=== PATIENT | male | born 1965 | race Caucasian/White ===

== ENCOUNTER 2018-10-27 13:10 | Outpatient (CLI) | payer BC ==
--- NOTE | 2018-10-27 16:22 | MRI ---
MRI RIGHT SHOULDER WITHOUT CONTRAST: INDICATIONS: History of impingement syndrome. FINDINGS: There is a full-thickness tear involving the supraspinatus at the footprint, measuring 0.8 x 1.8 cm i n its greatest mediolateral AP dimensions, respectively. There is some tear extension into the conjo ined tendon. There is moderate tendinosis of the infraspinatus. There is mild fluid in the subacrom ial subdeltoid bursa. There is moderate AC joint osteoarthrosis. There is a type II acromion. No o s acromiale is evident. The biceps tendon is located within the bicipital groove. The intraarticula r course of the biceps tendon appears within normal limits, but there is suggestion of some mild to m oderate tendinosis of the intraarticular biceps tendon. The biceps anchor and biceps anchor complex are intact. The inferior glenohumeral labral ligamentous complex is intact. The glenohumeral articu lar surface is normal appearing. IMPRESSION: 1. Full-thickness supraspinatus tear. 2. Moderate acromioclavicular joint osteoarthrosis. 3. Mild tendinosis of the infraspinatus. No muscular atrophy is evident. 4. Moderate intraarticular biceps tendinosis. POS: [facility]
== END 2018-10-27 13:11 | disposition home or self-care (01) ==
LOC: TBSIIMAG 13:10
PROVIDERS: ATTEND Orthopaedic Surgery
DX: M75.41 Impingement syndrome of right shoulder (principal); M75.101 Unspecified rotator cuff tear or rupture of right shoulder, not specified as traumatic; M19.011 Primary osteoarthritis, right shoulder; M75.81 Other shoulder lesions, right shoulder

== ENCOUNTER 2019-03-26 15:56 | Outpatient (CLI) | payer BC ==
--- NOTE | 2019-03-26 16:49 | RAD ---
Exam: Chest 2 views HISTORY:Preoperative evaluation Comparison: None FINDINGS: Lungs: No masses or consolidation. Cardiac silhouette: Normal size. Sternotomy wires are present. Pulmonary vessels: Normal Pleural Spaces: Clear Pneumothorax: None Osseous abnormalities: None of acuity. IMPRESSION: No focal consolidation.
[2019-03-26 17:03] LABS: #Eosinphils 0.1 thou/uL (0.0-0.7); #Lymphocytes 2.5 thou/uL (1.20-3.40); #Monocytes 0.7 thou/uL (0.11-0.59); %Basophils 0.4 % (0.0-1.0); %Eosinophils 1.1 % (0.0-10.0); %Lymphocytes 40.1 % (21.0-51.0); %Neutrophils 47.4 % (42.0-75.0); Hemoglobin 14.4 g/dL (14.0-18.0); Mean Corpuscular HGB CONC 35.2 g/dL (32.0-36.0); Mean Corpuscular Hemoglobin 32.4 pg (27.0-31.0); Mean Platelet Volume 8.4 fL (7.4-10.4); Platelet Count 243 thou/uL (130-400); RBC Distribution Width 11.9 % (11.5-14.5); Red Blood Cell (RBC) Count 4.45 mill/uL (4.70-6.10); White Blood Cell (WBC) Count 6.3 thou/uL (4.8-10.8)
[2019-03-26 17:09] LABS: INR-International Normal Ratio 0.9; Prothrombin Time 12.4 SEC (12.0-14.7)
[2019-03-26 17:27] LABS: Anion Gap 12 mmol/L (10-20); BUN (Urea Nitrogen) 16 mg/dL (8.4-25.7); Calc. Creatinine Clearance 0 mL/min (70-130); Calcium 9.1 mg/dL (7.8-10.44); Carbon Dioxide 23 mmol/L (22-29); Chloride 106 mmol/L (98-107); Estimated GFR-MDRD 54; Glucose 77 mg/dL (70-105); Sodium 137 mmol/L (136-145)
== END 2019-03-26 15:57 | disposition home or self-care (01) ==
LOC: LABBT 15:56
PROVIDERS: ATTEND Orthopaedic Surgery
DX: Z01.818 Encounter for other preprocedural examination (principal); M75.121 Complete rotator cuff tear or rupture of right shoulder, not specified as traumatic
CPT/HCPCS: 71046; 80048; 85025; 85610; 93005; 93010

== ENCOUNTER 2019-03-29 06:50 | Day surgery (SDC) | payer BC ==
[2019-03-26 16:07] VITALS: BMI 29.4
[2019-03-29] MEDS ORDERED: Fentanyl 100 MCG/2 ML VIAL ONE (08:03)
[2019-03-29] MEDS ORDERED: Midazolam HCl 2 mg/2 ml Vial ONE (08:03)
[2019-03-29] MEDS ORDERED: Ondansetron PF 4 MG/2 ML Vial IVP PRN (08:34)
[2019-03-29] MEDS ORDERED: Promethazine HCl 25 MG/ML VIAL IM PRN (08:34)
[2019-03-29] MEDS ORDERED: Ropivacaine 0.2% 550 ML 550 ML NERVE BLCK SCH (08:34)
[2019-03-29] MEDS ORDERED: traMADol HCl 50 MG TAB PO PRN ×2 (08:34)
[2019-03-29] MEDS ORDERED: Zolpidem Tartrate 5 MG TAB PO PRN (08:34)
[2019-03-29] MEDS ORDERED: HYDROcodone/Acetaminophen 10/325 mg Tablet PO PRN ×2 (08:34)
[2019-03-29] MEDS ORDERED: Lidocaine 2% Jelly 5 ML TUBE ONE (09:10)
[2019-03-29] MEDS ORDERED: Phenylephrine HCL 10 MG/ML VIAL ONE (09:10)
[2019-03-29] MEDS ORDERED: Bupivacaine/Epinephrine 0.25% 30 ML VIAL ONE (09:20)
[2019-03-29] MEDS ORDERED: Ropivacaine 0.5% HCl/PF (150 MG/30 ML VIAL) ONE (13:07)
[2019-03-29] MEDS ORDERED: Ropivacaine 0.2% HCl/PF (40 MG/20 ML VIAL) ONE (13:07)
[2019-03-29] MEDS ORDERED: Rocuronium Bromide 10 MG/ML (10ML VIAL) ONE (15:09)
[2019-03-29] MEDS ORDERED: Glycopyrrolate 0.2 MG/ML 5 ML SYRINGE ONE (15:09)
[2019-03-29] MEDS ORDERED: ePHEDrine 50 MG/ML VIAL ONE (15:09)
[2019-03-29] MEDS ORDERED: Ondansetron PF 4 MG/2 ML Vial ONE (15:09)
[2019-03-29] MEDS ORDERED: Dexamethasone 20 MG/5 ML VIAL ONE (15:09)
[2019-03-29] MEDS ORDERED: PROPOFOL 200 MG/20 ML VIAL ONE (15:09)
--- NOTE | 2019-03-30 09:06 | OP ---
DATE OF PROCEDURE: 03/29/2019 PREOPERATIVE DIAGNOSES: Right high-grade near full-thickness rotator cuff repair, tear of right supraspinatus. POSTOPERATIVE DIAGNOSES: Right high-grade near full-thickness rotator cuff repair, tear of right supraspinatus. PROCEDURE PERFORMED: Right rotator cuff repair arthroscopically. TEST CLERK: None. ANESTHESIA: The patient received a general endotracheal intubation with interscalene block. ESTIMATED BLOOD LOSS: 30 mL. TOURNIQUET TIME: None. IMPLANTS: A 5.5 Corkscrew in and out, 5.5 SwiveLock in and out, and a 4.75 SwiveLock. COMPLICATIONS: Broken anchor. HISTORY OF PRESENT ILLNESS: Mr. Mccallum is a 54-year-old male, status post pain of the right shoulder, failed conservative measures. MRI showed a near full-thickness rotator cuff tear. I discussed the risks and benefits of right rotator cuff repair to include pain, scar, bleeding, infection, damage to vital structures, decreased range of motion and strength, need for further surgeries, failure of procedure despite surgical intervention, damage to vital structures, loss of life or limb, and blood clots. The patient understood the risks and benefits of the procedure and elected proceed. DESCRIPTION OF PROCEDURE: Time-out was performed designating the patient's right upper extremity as the operative site based on site, consents, and marking. After time-out was performed, the patient's upper extremity was prepped and draped in a sterile fashion. The patient was placed in the beach chair position. Posterior working portal was placed and visualized intra-articular within the shoulder, saw no full-thickness defects within the shoulder. We injected Marcaine with epinephrine subacromially. First, we then moved intra-articularly. visualized intra-articularly and saw no full-thickness defects of the cartilage medial or laterally. Subscapularis was intact. Biceps looked good through its course. Degenerative labral fraying was noted. I noticed the tear intra-articularly of the rotator cuff. I then moved subacromially, debrided the bursa, found the near full-thickness tear of the supraspinatus. It was a U-shaped tear. I debrided off the footprint and treated for bleeding bone and placed a secondary hole. My typical lateral portal to place my anchor in more superior slightly posterior of the lateral working portal. I used an awl and then tapped the 5.5. I attempted to place a 5.5 Corkscrew which broke a little bit more medially with the position. I removed the anchor. I then came back, placed more laterally, placed 5.5 SwiveLock with loaded anchor in the eyelet for forced suture strands and again tapped the 5.5, placed in the place. It was very tight and hard. I felt that I might actually break it. I removed all the implants, passed four horizontal mattress stitches, sewed those together and passed a second one laterally to help compress the tendon down laterally, cut the sutures, removed all excess cement. I went back into the joint and looked to ensure there was no broken fragments inside the joint, which I could not appreciate any broken fragments and loose bodies. A portion of the anchor was buried within the bone, which we broke when removing it. The wound was washed. The portion that was left was about 1.5 threads at the tip. We washed and we closed with 3-0 nylon. The patient will be range of motion as tolerated and follow up with me in clinic. The patient will be begin functional range of motion and passive range of motion of wrist and hand until followup. Job ID: [id number]
== END 2019-03-29 13:50 | disposition home or self-care (01) ==
LOC: SDC 06:50
PROVIDERS: ATTEND Orthopaedic Surgery
PROC: 0LQ14ZZ Repair Right Shoulder Tendon, Percutaneous Endoscopic Approach (ICD-10-PCS; principal; 2019-03-29)
PROC: 3E0T3BZ Introduction of Anesthetic Agent into Peripheral Nerves and Plexi, Percutaneous Approach (ICD-10-PCS; principal; 2019-03-29)
DX: M75.121 Complete rotator cuff tear or rupture of right shoulder, not specified as traumatic (principal); G89.18 Other acute postprocedural pain; I25.10 Atherosclerotic heart disease of native coronary artery without angina pectoris; I10 Essential (primary) hypertension; E78.5 Hyperlipidemia, unspecified; E03.9 Hypothyroidism, unspecified; E66.9 Obesity, unspecified; Z68.29 Body mass index [BMI] 29.0-29.9, adult
CPT/HCPCS: A4306; C1713; J0690; J1100; J2250; J2370; J2405; J2704; J2795; J3010; J3490

== ENCOUNTER 2021-06-23 15:18 | Outpatient (CLI) | payer BC ==
[~2021-06-23 15:18] MED LIST: Magnevist 469MG/ML 20 ML VIAL ONE
== END 2021-06-23 15:19 | disposition home or self-care (01) ==
LOC: BICMRI 15:18
PROVIDERS: ATTEND Orthopaedic Surgery Hand Surgery
DX: D48.0 Neoplasm of uncertain behavior of bone and articular cartilage (principal); M19.041 Primary osteoarthritis, right hand; M65.841 Other synovitis and tenosynovitis, right hand
CPT/HCPCS: 82565; A9579

== ENCOUNTER 2023-06-17 09:08 | Outpatient (CLI) | payer BC | END 2023-06-17 09:09 | disposition home or self-care (01) | LOC: BICULT 09:08 | PROVIDERS: ATTEND Family Medicine | DX: R79.89 Other specified abnormal findings of blood chemistry (principal) | CPT/HCPCS: 76770 ==